=== PATIENT | female | born 1955 | race Caucasian/White ===

== ENCOUNTER 2016-12-08 16:00 | Outpatient (CLI) | payer MEDICAID | END 2016-12-08 16:15 | disposition home or self-care (01) | LOC: RT.N 16:00 | PROVIDERS: ATTEND Physician Assistant | DX: R07.9 Chest pain, unspecified (principal) | CPT/HCPCS: 93005 ==

== ENCOUNTER 2016-12-08 16:34 | Outpatient (CLI) | payer MEDICAID | END 2016-12-08 16:35 | disposition critical access hospital (66) | LOC: EMS 16:34 | PROVIDERS: ATTEND Surgery | DX: R07.9 Chest pain, unspecified (principal) | CPT/HCPCS: A0425; A0427 ==

== ENCOUNTER 2016-12-08 17:01 | Emergency (ER) | payer MEDICAID ==
[2016-12-08 17:52] LABS: BASOPHILS # (AUTO) 0.1 10^3/uL (0.0-0.1); EOSINOPHILS # (AUTO) 0.2 10^3/uL (0.0-0.7); EOSINOPHILS % (AUTO) 1.7 %; HGB - HEMOGLOBIN 15.1 g/dL (12.0-16.0); LYMPHOCYTES # (AUTO) 2.6 10^3/uL (1.5-3.5); MEAN CORPUSCULAR HEMOGLOBIN 31.5 pg (27.0-31.0); MEAN CORPUSCULAR HGB CONC 35.2 g/dL (32.0-36.0); MEAN CORPUSCULAR VOLUME 89.5 fL (81.0-99.0); MEAN PLATELET VOLUME 9.2 fL (7.9-10.8); MONOCYTES # (AUTO) 0.6 10^3/uL (0.0-1.0); MONOCYTES % (AUTO) 5.4 %; NEUTROPHILS # (AUTO) 7.9 10^3/uL (1.5-6.6); NEUTROPHILS % (AUTO) 68.9 %; RED CELL DISTRIBUTION WIDTH 13.7 % (12.0-15.0); UNCORRECTED WHITE BLOOD COUNT 11.5 x10^3/uL; WHITE BLOOD COUNT 11.5 x10^3/uL (4.8-10.8)
[2016-12-08 17:57] LABS: ALBUMIN/GLOBULIN RATIO 1.2 (1.0-2.2); BILIRUBIN,TOTAL 0.5 mg/dL (0.2-1.0); CALCIUM 9.4 mg/dL (8.5-10.3); CREATININE 1.1 mg/dL (0.4-1.0); TOTAL PROTEIN 8.1 g/dL (6.7-8.2)
--- NOTE | 2016-12-08 18:04 | ED Physician Documentation ---
PD HPI CHEST PAIN - Stated complaint Stated Complaint: CP - Chief complaint Chief Complaint: Cardiac - History obtained from History obtained from: Patient - History of Present Illness Timing - onset: Other (This is a 61-year-old woman with history of fibromyalgia , psychiatric disease including PTSD and tobacco abuse who for the last 6 months has had episodic chest and head throbbing that is related to stress and she had a particularly bad episode 4 days ago related to stress where she has no recollection for 5 minutes but did not have a syncopal episode. She is asymptomatic now without shortness of breath, chest pain, pedal edema, calf pain , hemoptysis. It is noted by the RN though that she has a symmetric upper extremity blood pressures.) Review of Systems Ten Systems: 10 systems reviewed and negative Constitutional: denies: Fever, Chills Ears: denies: Loss of hearing, Ear pain Nose: denies: Rhinorrhea / runny nose, Congestion Throat: denies: Dental pain / toothache, Sore throat Cardiac: reports: Chest pain / pressure. 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 - Present Medications Home Medications: Ambulatory Orders Medication Instructions Recorded Confirmed Amitriptyline HCl 200 mg PO DAILY 01/28/13 12/08/16 Carvedilol [Coreg] 6.25 mg PO BID 01/28/13 12/08/16 Fluticasone 44 Mcg [Flovent] 1 puffs INH BID 01/28/13 12/08/16 Omeprazole [PriLOSEC] 20 mg PO DAILY 01/28/13 12/08/16 rOPINIRole [Requip] 1 mg PO TID 01/28/13 12/08/16 Hydroxyzine HCl 25 mg PO DAILY 03/29/15 12/08/16 Lisinopril 20 mg PO DAILY 03/29/15 12/08/16 - Allergies Allergies/Adverse Reactions: Allergies Allergy/AdvReac Type Severity Reaction Status Date / Time acetaminophen [From Tylenol] Allergy Severe Edema Verified 12/08/16 17:17 amoxicillin trihydrate * Allergy Severe Edema Verified 12/08/16 17:17 [From Amoxil] aspirin Allergy Severe Edema Verified 12/08/16 17:17 ibuprofen [From Motrin] Allergy Severe Edema Verified 12/08/16 17:17 Penicillins Allergy Severe Hives Verified 12/08/16 17:17 Sulfa (Sulfonamide Allergy Intermediate Edema Verified 12/08/16 17:17 Antibiotics) anesthesia AdvReac Severe malignant Uncoded 12/08/16 17:17 hyperthermia - Social History Does the pt smoke?: Yes Smoking Status: Current some day smoker Does the pt drink ETOH?: No Does the pt have substance abuse?: Yes Substance Use and Type: Marijuana - Family History Family history: reports: Non contributory - Immunizations Immunizations are current?: No Immunizations: TDAP current <10years PD ED PE NORMAL - Vitals Vital signs reviewed: Yes - General General: Alert and oriented X 3, No acute distress - HEENT HEENT: PERRL, EOMI - Neck Neck: Supple, no meningeal sign, No bony TTP - Cardiac Cardiac: RRR, No murmur - Respiratory Respiratory: No respiratory distress, Clear bilaterally - Abdomen Abdomen: Normal bowel sounds, Soft, Non tender - Back Back: No CVA TTP, No spinal TTP - Derm Derm: Normal color, Warm and dry - Extremities Extremities: No edema, No calf tenderness / cord - Neuro Neuro: Alert and oriented X 3, Normal speech - Psych Psych: Normal mood, Normal affect Results - Vitals Vitals: Vital Signs - 24 hr 12/08/16 12/08/16 12/08/16 17:04 17:47 19:23 Temperature 36.3 C L Heart Rate 77 72 Respiratory 18 18 Rate Blood Pressure 160/79 H 114/64 Blood Pressure 153/89 H [Left] Blood Pressure 101/87 H [Right] O2 Saturation 96 96 Oxygen O2 Source Room air - EKG (time done) 1715 Rate: Rate (enter#) (76) Rhythm: NSR [place]: Normal Intervals: Normal [place] QRS: Normal Ischemia: Normal ST segments Computer interpretation: Agree with computer - Labs Labs: Laboratory Tests 12/08/16 12/08/16 12/08/16 17:40 17:40 17:40 WBC 11.5 H RBC 4.80 Hgb 15.1 Hct 43.0 MCV 89.5 MCH 31.5 H MCHC 35.2 RDW 13.7 Plt Count 244 MPV 9.2 Neut # 7.9 H Lymph # 2.6 [place] # 0.6 Eos # 0.2 Baso # 0.1 Absolute Nucleated RBC 0.01 Nucleated RBCs 0.0 Sodium 138 Potassium 4.0 Chloride 107 Carbon Dioxide 22 Anion Gap 9.0 BUN 28 H Creatinine 1.1 H Estimated GFR (MDRD) 50 L Glucose 109 H Calcium 9.4 Total Bilirubin 0.5 AST 13 ALT 13 Alkaline Phosphatase 77 Troponin I < 0.04 Total Protein 8.1 Albumin 4.4 Globulin 3.7 Albumin/Globulin Ratio 1.2 Lipase 22 - Rads (name of study) CHest CT Radiology: EMP read contemporaneously (Some mediastinal and hilar lymphadenopathy without evidence of dissection or PE.) PD MEDICAL DECISION MAKING - ED course ED course: 61-year-old woman with atypical long-standing intermittent chest pains, some concern for a symmetric blood pressures but no evidence of dissection on CT. Other workup negative with the exception of mild dehydration for which oral fluids were device and mediastinal adenopathy for which followup was advised. Departure - Departure Disposition: 01 Home, Self Care Clinical Impression: Chest pain Qualifiers: Chest pain type: unspecified Qualified Code(s): R07.9 - Chest pain, unspecified Condition: Good Record reviewed to determine appropriate education?: Yes Instructions: ED Chest Pain Atypical Unkn Cause Comments: As discussed you have some lymph nodes in her chest that require followup, mention this to your physician, I anticipate they will want to get a chest x- ray on you in the future to make sure nothing is changing. Return if worse. Drink plenty of fluids. Your blood pressure was elevated today on check in to the emergency department. This does not mean that you have hypertension, it is a common phenomenon to check into the emergency department and have elevated blood pressure. I recommend that you see your primary care physician within the week to have it rechecked when you're feeling better.
[2016-12-08] MEDS ORDERED: IOPAMIDOL-300 100 ML VIAL IVP ONE (19:14)
[2016-12-08 19:25] VITALS: BP 114/64
--- NOTE | 2016-12-08 19:43 | CT Preliminary Report ---
Exam: CT Chest Angio (PE) IMPRESSION: 1. No pulmonary embolism or acute air space disease. 2. Mildly enlarged mediastinal and hilar lymph nodes. [facility] SITE ID: [id number]
--- NOTE | 2016-12-08 19:46 | CT Report ---
EXAM: CT ANGIOGRAM CHEST EXAM DATE: 12/08/2016 07:26 PM. CLINICAL HISTORY: Chest pain, asymmetric BPs. COMPARISON: None. TECHNIQUE: Routine helical imaging was performed through the chest in the pulmonary arterial phase. I V Contrast: 75 mL Isovue 300. Reconstructions: Coronal 3-D MIP reconstructions.Sagittal and coronal. In accordance with CT protocol optimization, one or more of the following dose reduction techniques w ere utilized for this exam: automated exposure control, adjustment of mA and/or KV based on patient s ize, or use of iterative reconstructive technique. FINDINGS: Pulmonary Arteries: Diagnostic quality: Adequate through the segmental arteries. No evidence for acute or chronic pulmona ry emboli. RV/LV is within normal limits. There is no interventricular septal bowing. There is no reflux of cont rast material in the IVC. Lungs/Pleura: No consolidation, nodules, or edema. No effusions or pneumothorax. Mediastinum: There is a 1.2 cm lower right paratracheal lymph node. A 1.1 cm left hilar lymph node al so noted. Several additional subcentimeter mediastinal and bilateral hilar lymph nodes present. Thoracic Aorta: Unremarkable. Upper Abdomen: Unremarkable. Other: None. IMPRESSION: 1. No pulmonary embolism or acute air space disease. 2. Mildly enlarged mediastinal and hilar lymph nodes. [facility] Referring Provider Line: [phone] SITE ID: [id number]
== END 2016-12-08 20:59 | disposition home or self-care (01) ==
LOC: EDUNIT# → ED 17:01
DX: R07.9 Chest pain, unspecified (principal); I10 Essential (primary) hypertension; M79.7 Fibromyalgia; J45.909 Unspecified asthma, uncomplicated; K21.9 Gastro-esophageal reflux disease without esophagitis; Z87.442 Personal history of urinary calculi; F17.200 Nicotine dependence, unspecified, uncomplicated
CPT/HCPCS: 36415; 71275; 80053; 83690; 84484; 85025; 93005; 99284; Q9967

== ENCOUNTER 2016-12-25 15:01 | Outpatient (CLI) | payer MEDICAID ==
--- NOTE | 2016-12-25 16:19 | XRAY Report ---
TWO VIEW CHEST: 12/25/2016 CLINICAL INDICATION: COPD. COMPARISON: CT of 12/08/2016. FINDINGS: Frontal and lateral views of the chest demonstrate a normal cardiac silhouette. The lungs are hyperinflated, compatible with COPD. No focal consolidation, effusion, or pneumothorax is present . IMPRESSION: HYPERINFLATION, COMPATIBLE WITH COPD. NO EVIDENCE OF ACUTE CARDIOPULMONARY DISEASE. JOB #: [id number] EXT JOB #:[id number]
== END 2016-12-25 15:02 | disposition home or self-care (01) ==
LOC: DI.N 15:01
PROVIDERS: ATTEND Physician Assistant
DX: J44.9 Chronic obstructive pulmonary disease, unspecified (principal)
CPT/HCPCS: 71020

== ENCOUNTER 2017-04-30 13:30 | Outpatient (CLI) | payer MEDICAID | END 2017-04-30 13:45 | disposition home or self-care (01) | LOC: RT.N 13:30 | PROVIDERS: ATTEND Nurse Practitioner Gerontology | DX: R07.89 Other chest pain (principal) | CPT/HCPCS: 93005 ==

== ENCOUNTER 2017-04-30 14:25 | Outpatient (CLI) | payer MEDICAID ==
--- NOTE | 2017-04-30 16:35 | XRAY Report ---
EXAM: CHEST RADIOGRAPHY EXAM DATE: 04/30/2017 02:43 PM. CLINICAL HISTORY: COPD. COMPARISON: 12/25/2016. TECHNIQUE: 2 views. FINDINGS: Lungs/Pleura: Hyperexpanded with flattened diaphragm and coarse lung markings typical for COPD. Mild increased haziness compared to previous study. No consolidation, definite effusion, or pneumothorax. Mediastinum: Overall heart size near upper limit of normal, increased since previous exam, with mild diffuse vascular fullness. Other: None. IMPRESSION: Findings compatible with congestive failure in a patient with underlying COPD. [facility] Referring Provider Line: [phone] SITE ID: [id number]
== END 2017-04-30 14:26 | disposition home or self-care (01) ==
LOC: DI.N 14:25
PROVIDERS: ATTEND Nurse Practitioner Gerontology
DX: J44.9 Chronic obstructive pulmonary disease, unspecified (principal)
CPT/HCPCS: 71020

== ENCOUNTER 2017-08-23 17:24 | Outpatient (CLI) | payer MEDICAID | END 2017-08-23 17:25 | disposition critical access hospital (66) | LOC: EMS 17:24 | PROVIDERS: ATTEND Surgery | DX: M79.646 Pain in unspecified finger(s) (principal) | CPT/HCPCS: A0425; A0429 ==

== ENCOUNTER 2017-08-23 17:48 | Emergency (ER) | payer MEDICAID ==
[2017-08-23] MEDS ORDERED: ACETAMINOPHEN 500 MG TABLET PO STA (20:05)
--- NOTE | 2017-08-23 20:09 | ED Physician Documentation ---
PD HPI UPPER EXT INJURY - Stated complaint Stated Complaint: HAND PX - Chief complaint Chief Complaint: General - History of Present Illness Location: Both, Hand Where injury occurred: Home Timing - onset: How many weeks ago (4) Timing - details: Gradual onset, Still present Worsened by: Palpating Associated symptoms: Swelling, Discolored Contributing factors: No: Anticoagulated Similar symptoms before: Work up / diagnostics, Treatment Recently seen: Clinic - Additonal information Additional information: Patient is a 62 year old female who is presenting to the emergency department for bilateral hand pain. patient states that the pain has been going on for the last 4 weeks or so. Patient saw her pmd who said she had raynauds. Patient was started on a calcium channel arsen. Patient states that the pain persisted so she came to the emergency department for further evaluation and care. Review of Systems Constitutional: denies: Fever, Chills Eyes: reports: Reviewed and negative Ears: reports: Reviewed and negative Nose: reports: Reviewed and negative Throat: reports: Reviewed and negative Respiratory: denies: Dyspnea, Cough GI: denies: Nausea, Vomiting : reports: Reviewed and negative Skin: reports: Rash, Lesions Musculoskeletal: reports: Extremity pain, Joint pain, Extremity swelling Neurologic: reports: Numbness Psychiatric: reports: Depressed, Anxiety Immunocompromised: denies: Immunocompromised PD PAST MEDICAL HISTORY - Past Medical History Past Medical History: Yes Cardiovascular: Hypertension, Other Respiratory: Asthma Neuro: Headache/migraine GI: GERD, Hepatitis : Renal insuffiency, Kidney stones Psych: Depression, Anxiety, Bipolar disorder Musculoskeletal: Fibromyalgia Derm: Other Other Past Medical History: Raynaud's - Past Surgical History Past Surgical History: Yes General: Appendectomy, 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 - Present Medications Home Medications: Ambulatory Orders Medication Instructions Recorded Confirmed Amitriptyline HCl 200 mg PO DAILY 01/28/13 12/08/16 Carvedilol [Coreg] 6.25 mg PO BID 01/28/13 12/08/16 Fluticasone 44 Mcg [Flovent] 1 puffs INH BID 01/28/13 12/08/16 hydrOXYzine HCl [Hydroxyzine HCl] 25 mg PO DAILY 03/29/15 12/08/16 Docusate Sodium [Colace Clear] 08/23/17 Pramipexole [Mirapex] 08/23/17 Terbinafine [Lamisil] 250 mg PO DAILY #42 tablet 08/23/17 amLODIPine [Norvasc] 08/23/17 raNITIdine [Zantac] 08/23/17 - Allergies Allergies/Adverse Reactions: Allergies Allergy/AdvReac Type Severity Reaction Status Date / Time acetaminophen [From Tylenol] Allergy Severe Edema Verified 08/23/17 17:59 amoxicillin trihydrate * Allergy Severe Edema Verified 08/23/17 17:59 [From Amoxil] aspirin Allergy Severe Edema Verified 08/23/17 17:59 ibuprofen [From Motrin] Allergy Severe Edema Verified 08/23/17 17:59 Penicillins Allergy Severe Hives Verified 08/23/17 17:59 Sulfa (Sulfonamide Allergy Intermediate Edema Verified 08/23/17 17:59 Antibiotics) anesthesia AdvReac Severe malignant Uncoded 08/23/17 17:59 hyperthermia - Social History Does the pt smoke?: Yes Smoking Status: Current every day smoker Does the pt drink ETOH?: No Does the pt have substance abuse?: Yes - Immunizations Immunizations are current?: No Immunizations: TDAP current <10years PD ED PE NORMAL - General General: Alert and oriented X 3 - HEENT HEENT: Atraumatic, PERRL - Neck Neck: Supple, no meningeal sign - Cardiac Cardiac: RRR - Respiratory Respiratory: No respiratory distress - Abdomen Abdomen: Non distended - Neuro Neuro: Alert and oriented X 3, No motor deficit, Normal speech Eye Opening: Spontaneous Motor: Obeys Commands Verbal: Oriented GCS Score: 15 PD ED PE EXPANDED - General General: Alert, Disheveled, poorly kept, In Pain - Extremities Extremities: Right finger(s) (tenderness and discoloration of fingertips on bilateral hands), Left finger(s) Results - Vitals Vitals: Vital Signs - 24 hr 08/23/17 08/23/17 08/23/17 17:55 19:25 20:17 Temperature 36.5 C 36.6 C Heart Rate 91 78 84 Respiratory 18 20 20 Rate Blood Pressure 121/66 130/78 149/89 H O2 Saturation 99 98 99 Oxygen O2 Source Room air PD MEDICAL DECISION MAKING - ED course Complexity details: reviewed old records, reviewed results, re-evaluated patient , considered differential, d/w patient ED course: Patient was seen and examined at bedside. patient's symptoms were likely multi factorial. Patient was started on an antifungal as she was already on a calcium channel arsen for possible vaso-occlusion. Patient's symptoms had been going on for over a month and were stable for outpatient followup. Departure - Departure Disposition: 01 Home, Self Care Clinical Impression: Onychomycosis Condition: Good Instructions: ED Nail Infec Fungal Follow-Up: Kiara Wayne ARNP [Primary Care Provider] - Prescriptions: Terbinafine [Lamisil] 250 mg PO DAILY #42 tablet Comments: Your symptoms are secondary to fungal infection and likely poor blood flow. You will be started on an antifungal and will need to be on it for the next 6 weeks. You are already on a calcium channel arsen and should continue with that. YOu should take motrin or tylenol as tolerated. You should follow up with your doctor for further care. You may return to the emergency department at any time for new, worsening or uncontrollable symptoms. Discharge Date/Time: 08/23/17 20:16
[2017-08-23 20:24] VITALS: BP 149/89
== END 2017-08-23 20:16 | disposition home or self-care (01) ==
LOC: EDUNIT# → EDBD → ED 17:48
DX: B35.1 Tinea unguium (principal); I73.00 Raynaud's syndrome without gangrene; I10 Essential (primary) hypertension; F17.200 Nicotine dependence, unspecified, uncomplicated
CPT/HCPCS: 99283; A9270

== ENCOUNTER 2017-08-26 13:49 | Outpatient (CLI) | payer MEDICAID ==
[2017-08-26 18:58] LABS: ALBUMIN 4.6 g/dL (3.2-5.5); ALBUMIN/GLOBULIN RATIO 1.5 (1.0-2.2); ALKALINE PHOSPHATASE 76 IU/L (42-121); ALT ALANINE AMINOTRANSFERASE < 10 IU/L (10-60); AST ASPARTATE AMINOTRANSFERASE 14 IU/L (10-42); BILIRUBIN,TOTAL 0.4 mg/dL (0.2-1.0); BUN - BLOOD UREA NITROGEN 12 mg/dL (6-20); CALCIUM 9.2 mg/dL (8.5-10.3); CARBON DIOXIDE - CO2 23 mmol/L (21-32); CHLORIDE 105 mmol/L (101-111); CREATININE 0.8 mg/dL (0.4-1.0); GFR - MDRD 72 (>89); GLUCOSE 107 mg/dL (70-100); SODIUM 137 mmol/L (135-145); TOTAL PROTEIN 7.7 g/dL (6.7-8.2)
== END 2017-08-26 13:50 | disposition home or self-care (01) ==
LOC: LAB.N 13:49
PROVIDERS: ATTEND Nurse Practitioner Gerontology
DX: Z13.9 Encounter for screening, unspecified (principal)
CPT/HCPCS: 36415; 80053

== ENCOUNTER 2018-04-14 13:04 | Outpatient (CLI) | payer MEDICAID ==
[2018-04-14 19:31] LABS: BASOPHILS # (AUTO) 0.1 10^3/uL (0.0-0.1); BASOPHILS % (AUTO) 0.5 %; EOSINOPHILS # (AUTO) 0.1 10^3/uL (0.0-0.7); EOSINOPHILS % (AUTO) 1.4 %; HGB - HEMOGLOBIN 15.7 g/dL (12.0-16.0); LYMPHOCYTES # (AUTO) 1.1 10^3/uL (1.5-3.5); LYMPHOCYTES % (AUTO) 11.3 %; MEAN CORPUSCULAR HEMOGLOBIN 29.9 pg (27.0-31.0); MEAN CORPUSCULAR HGB CONC 33.5 g/dL (32.0-36.0); MEAN CORPUSCULAR VOLUME 89.2 fL (81.0-99.0); MEAN PLATELET VOLUME 8.9 fL (7.9-10.8); MONOCYTES # (AUTO) 0.5 10^3/uL (0.0-1.0); MONOCYTES % (AUTO) 5.4 %; NEUTROPHILS # (AUTO) 8.1 10^3/uL (1.5-6.6); NEUTROPHILS % (AUTO) 81.4 %; PLT - PLATELET COUNT 296 10^3/uL (130-450); RED BLOOD COUNT 5.25 10^6/uL (4.20-5.40); RED CELL DISTRIBUTION WIDTH 15.4 % (12.0-15.0); WHITE BLOOD COUNT 9.9 x10^3/uL (4.8-10.8)
[2018-04-14 19:45] LABS: ALBUMIN 3.8 g/dL (3.2-5.5); ALBUMIN/GLOBULIN RATIO 1.1 (1.0-2.2); ALKALINE PHOSPHATASE 77 IU/L (42-121); ALT ALANINE AMINOTRANSFERASE < 10 IU/L (10-60); AST ASPARTATE AMINOTRANSFERASE 14 IU/L (10-42); BILIRUBIN,TOTAL 0.6 mg/dL (0.2-1.0); BUN - BLOOD UREA NITROGEN 12 mg/dL (6-20); CALCIUM 8.9 mg/dL (8.5-10.3); CARBON DIOXIDE - CO2 23 mmol/L (21-32); CHLORIDE 103 mmol/L (101-111); CHOL/HDL RATIO 6.3 (<4.4); CHOLESTEROL 175 mg/dL; CREATININE 0.8 mg/dL (0.4-1.0); GFR - MDRD 72 (>89); GLUCOSE 124 mg/dL (70-100); HDL CHOLESTEROL 28 mg/dL; LDL CHOLESTEROL,CALCULATED 82 mg/dL; LDL/HDL RATIO 2.9 (<4.4); SODIUM 134 mmol/L (135-145); TOTAL PROTEIN 7.2 g/dL (6.7-8.2); VLDL CHOLESTEROL 65 mg/dL
== END 2018-04-14 13:05 | disposition home or self-care (01) ==
LOC: LAB.N 13:04
PROVIDERS: ATTEND Nurse Practitioner Gerontology
DX: I10 Essential (primary) hypertension (principal); J44.9 Chronic obstructive pulmonary disease, unspecified; E78.5 Hyperlipidemia, unspecified; Z79.899 Other long term (current) drug therapy
CPT/HCPCS: 36415; 80050; 80061; 83721

== ENCOUNTER 2018-04-14 18:53 | Outpatient (CLI) | payer MEDICAID | END 2018-04-14 18:54 | disposition critical access hospital (66) | LOC: EMS 18:53 | PROVIDERS: ATTEND Surgery | DX: R06.00 Dyspnea, unspecified (principal) | CPT/HCPCS: A0425; A0427; A0999 ==

== ENCOUNTER 2018-04-14 19:15 | Emergency (ER) | payer MEDICAID ==
--- NOTE | 2018-04-14 19:47 | ED Physician Documentation ---
PD HPI DYSPNEA - Stated complaint Stated Complaint: SOA - Chief complaint Chief Complaint: Resp - History obtained from History obtained from: Patient - History of Present Illness Timing - onset: Today Timing - onset during: Light activity (she was at store and felt some discomfort back of throat, started to have asthma wheezing but did not have her inhaler with her. Got home and used Symbicort MDI and that felt like she could then not breath at all. Called EMS. Got neb treatment enroute and feeling better.) Timing - duration: Minutes Timing - details: Abrupt onset, Now resolved Inciting event(s): Other (she is not sure if some airborne trigger at the store started the asthma symptoms.). No: URI Associated symptoms: Wheezing. No: Fever, Cough Similar symptoms before: Diagnosis (asthma) Review of Systems Constitutional: denies: Fever, Chills Nose: denies: Rhinorrhea / runny nose, Congestion Throat: denies: Sore throat Cardiac: denies: Chest pain / pressure Respiratory: reports: Wheezing. 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 - Present Medications Home Medications: Ambulatory Orders Medication Instructions Recorded Confirmed Amitriptyline HCl 200 mg PO DAILY 01/28/13 12/08/16 Fluticasone 44 Mcg [Flovent] 1 puffs INH BID 01/28/13 12/08/16 hydrOXYzine HCl [Hydroxyzine HCl] 25 mg PO DAILY 03/29/15 12/08/16 Docusate Sodium [Colace Clear] 1 cap ORAL DAILY 08/23/17 Terbinafine [Lamisil] 250 mg PO DAILY #42 tablet 08/23/17 raNITIdine [Zantac] 2 tab ORAL BID 08/23/17 Albuterol Sulf [Ventolin Hfa 2 - 3 puffs INH Q4HR PRN #1 inhaler 04/14/18 Inhaler] Dexamethasone [Decadron] 4 mg PO DAILY #5 tablet 04/14/18 - Allergies Allergies/Adverse Reactions: Allergies Allergy/AdvReac Type Severity Reaction Status Date / Time acetaminophen [From Tylenol] Allergy Severe Edema Verified 04/14/18 19:32 amoxicillin trihydrate * Allergy Severe Edema Verified 04/14/18 19:32 [From Amoxil] aspirin Allergy Severe Edema Verified 04/14/18 19:32 ibuprofen [From Motrin] Allergy Severe Edema Verified 04/14/18 19:32 Penicillins Allergy Severe Hives Verified 04/14/18 19:32 Sulfa (Sulfonamide Allergy Intermediate Edema Verified 04/14/18 19:32 Antibiotics) amlodipine [From Norvasc] Allergy Anaphylaxis Verified 04/14/18 20:59 anesthesia Allergy Severe malignant Uncoded 04/14/18 19:32 hyperthermia - Social History Does the pt smoke?: Yes Smoking Status: Current every day smoker Does the pt drink ETOH?: No Does the pt have substance abuse?: Yes Substance Use and Type: Marijuana - Immunizations Immunizations are current?: Yes Immunizations: TDAP current <10years - POLST Patient has POLST: No PD ED PE NORMAL - Vitals Vital signs reviewed: Yes - General General: Alert and oriented X 3, No acute distress, Well developed/nourished - HEENT HEENT: Ears normal, Moist mucous membranes, Pharynx benign - Neck Neck: Supple, no meningeal sign, No adenopathy - Cardiac Cardiac: RRR, No murmur - Respiratory Respiratory: Clear bilaterally - Derm Derm: Normal color, Warm and dry - Neuro Neuro: Alert and oriented X 3, No motor deficit, Normal speech Results - Vitals Vitals: Oxygen O2 Source Room air PD MEDICAL DECISION MAKING - ED course Complexity details: considered differential (doing better with neb loraroute. ), d/w patient Departure - Departure Disposition: 01 Home, Self Care Clinical Impression: Acute bronchospasm Exacerbation of asthma Qualifiers: Asthma severity: mild Asthma persistence: intermittent Qualified Code(s): J45.21 - Mild intermittent asthma with (acute) exacerbation Condition: Stable Record reviewed to determine appropriate education?: Yes Instructions: ED Wheezing Follow-Up: Kiara Wayne ARNP [Primary Care Provider] - Prescriptions: Albuterol Sulf [Ventolin Hfa Inhaler] 2 - 3 puffs INH Q4HR PRN #1 inhaler PRN Reason: Shortness Of Air/Wheezing Dexamethasone [Decadron] 4 mg PO DAILY #5 tablet Comments: Drink lots of fluids. This sounds like a asthma exacerbation with a bronchospasm which means tightening of the airway. There is no signs of swelling to it right now. I am glad you are feeling improved. Use an albuterol inhaler 2 puffs to 3 puffs 4 times a day as needed for wheezing. Continue other usual medicines. Add Decadron steroid orally for the next 5 days. Recheck if not improving over the next several days. Discharge Date/Time: 04/14/18 21:04
[2018-04-14] MEDS ORDERED: DEXAMETHASONE 10 MG/ML VIAL IVP STA (19:59)
[2018-04-14] MEDS ORDERED: ALBUTEROL NEB 2.5 MG/3 ML INH STA (19:59)
[2018-04-14] MEDS ORDERED: diphenhydrAMINE INJ 50 MG/ML VIAL IVP STA (19:59)
[2018-04-14 20:54] VITALS: BP 123/78
== END 2018-04-14 21:04 | disposition home or self-care (01) ==
LOC: EDUNIT# → ED 19:15
DX: J45.21 Mild intermittent asthma with (acute) exacerbation (principal); I10 Essential (primary) hypertension; F17.200 Nicotine dependence, unspecified, uncomplicated; E78.5 Hyperlipidemia, unspecified; Z79.899 Other long term (current) drug therapy
CPT/HCPCS: 36415; 80050; 80061; 94640; 96374; 99283; J1200; 83721

== ENCOUNTER 2018-12-03 17:19 | Outpatient (CLI) | payer MEDICAID | END 2018-12-03 17:20 | disposition E | LOC: EMS 17:19 | PROVIDERS: ATTEND Surgery | DX: I46.9 Cardiac arrest, cause unspecified (principal) | CPT/HCPCS: A0425; A0429 ==